=== PATIENT | male | born 1965 | race Caucasian/White ===

== ENCOUNTER 2025-10-27 16:22 | Outpatient (CLI) | payer MEDICAID, SELFPAY | END 2025-10-27 16:23 | disposition home or self-care (01) | PROVIDERS: PCP Family Medicine; Visit Provider Family Medicine | DX: E11.9 Type 2 diabetes mellitus without complications (principal); I10 Essential (primary) hypertension; Z13.9 Encounter for screening, unspecified; R53.83 Other fatigue | CPT/HCPCS: 80048; 80061; 84443; 85025 ==

== ENCOUNTER 2025-10-28 06:02 | Emergency (ER) | payer MEDICAID, SELFPAY ==
[2025-10-28] VITALS (9 sets, daily range): BP systolic 128–140; BP diastolic 80–88; PULSE 87–98; RESP 22; TEMP 36.7; O2SAT 94–97; BMI 19.0
--- OUTSIDE RECORDS SUMMARY | 2025-10-28 06:05 | XMS_ITS | Clinical Summary ---
Author Organization [facility] Address [address] [place] [address] Care Team Providers Care Manager Program Name Role Phone Elsewhere, Pcp Primary Care Provider Unavailabl e Source Comments Patient records contain information from all sites at [facility]. For routine questions regarding patient records, call [phone] during business hours, M-F 8:00 AM - 5:00 PM Central Time. Record requests for emergency care only can be directed to [phone] at any time.[facility] Allergies No known active allergies Medications MedicationSigDispense QuantityRefillsLast FilledStart DateEnd DateStatus blood sugar diagnostic strips (Blood Glucose Test Strips) Dispense test strips covered by pt ins. E11.65 NIDDM type II, uncontrolled - Test times/day. Reason: High A1C02/17/2022ctive nywqsx-jszumfzb-lgzutfi (Creon) 6,000-19,000-30,[address] capsule Take 1 capsule by mouth 3 (three) times a day with meals.05/09/2023ctive alcohol swabs pads, medicated Indications:Diabetes Mellitus Type 2 Hyperglycemia (HCC)Use as needed for diabetes control 1500 each ctive blood sugar diagnostic strips Indications:Diabetes Mellitus Type 2 Hyperglycemia (HCC)1 test daily. 100 test ctive blood glucose ctl high,nml,low solution Indications:Diabetes Mellitus Type 2 Hyperglycemia (HCC)Glucose control solution provides an easy way to ensure accurate blood glucose testing. 1 each 09/16/2024ctive metFORMIN XR (Glucophage-XR) 500 mg 24 hr tablet Take 1 tablet (500 mg total) by mouth daily with morning meal for 7 days, THEN 2 tablets (1,000 mg total) daily with morning meal for 7 days, THEN 3 tablets (1,500 mg total) daily with morning meal for 7 days, THEN 4 tablets (2,000 mg total) daily with morning meal. 310 tablet 4Active ciclopirox (Penlac) 8 % external solution Apply 1 Application topically at bedtime. Apply over nail and surrounding skin. Apply daily over previous coat. After seven (7) days, may remove with alcohol and continue cycle. 6.6 mL 5Active lisinopriL 5 mg tablet Take 1 tablet (5 mg total) by mouth daily. 90 tablet 5Active Accu-Chek Guide L1-L2 Ctrl Radha solution GLUCOSE CONTROL SOLUTION PROVIDES AN EASY WAY TO ENSURE ACCURATE BLOOD GLUCOSE TESTING 2 each 5Active Accu-Chek Guide Me Glucose Mtr misc Indications:Diabetes Mellitus Type 2 Hyperglycemia (HCC)USE TO TEST DIRECTED FOR DIABETES CONTROL 1 each 5Active insulin glargine (Lantus Solostar U-100 Insulin) 100 unit/mL (3 mL) pen Inject 35 Units under the skin at bedtime. Pharmacy select brand per patient insurance/preference. 15 mL 5Active Active Problems ProblemNoted DateDiagnosed DateDiabetes Mellitus Type 2 Yyneuczhngozg74/06/2018 Alcohol Induced Chronic Guzbyclvfpxe68/06/2018Moderate Or Severe Use Disorder (Dependence) Alcohol Qxevxmgap63/06/2018 Overview (09/16/2024): Sober since 2009. Tobacco Use07/29/2008 Immunizations ImmunizationAdministration DatesNext DueHepA / HepB5065SPH6175/12/2023 [id number] (SHINGRIX)11/20/2020,07/23/2020Tdap03/20/2018influenza vaccine QV(FLUBLOK) (18 years or older) (PF)07/23/2020influenza vaccine quad (FLUZONE/FLUARIX) (6 months and older)(PF)12/14/2021,08/14/2018 Family History Medical HistoryRelationNameCommentsStrokeFatherLyleColon cancerMother's Brother BudRelationNameStatusCommentsFatherLyleAliveMother's BrotherBudAlive Social History Tobacco UseTypesPacks/DayYears UsedDateSmoking Tobacco: Some DaysCigarettes0.342 Started: 1983Smokeless Tobacco: FormerSnuff Tobacco Cessation:Ready to Q uit: Not Asked; Counseling Given: Yes Comments:3 cig weekly Alcohol UseStandard Drinks/WeekCommentsNot Currently0 (1 standard drink = 0.6 oz pure alcohol)Sober since HC UtilitiesAnswerDate RecordedIn the past 12 months has the Tabber, gas, oil, or water [employer] threatened to shut off services in your home?Patient tmuyvyhy80/19/2024Hunger Vital SignAnswerDate RecordedWithin the past 12 months, you worried that your food would run out before you got the money to buymore.Sometimes true09/16/2024Within the past 12 months, the food you bought just didn't last and you didn't have money to get more.Never true09/16/2024RAPARE - TransportationAnswerDate RecordedIn the past 12 months, has lack of transportation kept you from medical appointments or from getting medications?No09/16/2024In the past 12 months, has lack of transportation kept you from meetings, work, or from getting things needed for daily living?No09/16/2024Housing StabilityAnswerDate RecordedWhat is your living situation today?I have a steady place to live09/16/2024Sex and Gender InformationValueDate RecordedSex Assigned at ApcvhEomm49/19/2024 10:01 AM FAMILY LIFE EDUCATOR Legal WheBoco16/07/2024 11:28 AM CSTGender TtgxuzbaNwrg39/19/2024 10:01 AM FAMILY LIFE EDUCATOR Sexual HypwvlncrrfSbqwbhhg54/19/2024 10:01 AM FAMILY LIFE EDUCATOR Last Filed Vital Signs Vital SignReadingTime TakenCommentsBlood Esflztgc765/8312/09/2024 3:47 PM FAMILY LIFE EDUCATOR Ndxoq7316 3:47 PM MRVYrlelzynyrq63.1 ??C (97 ??F)12/09/2024 3:41 PM FAMILY LIFE EDUCATOR Respiratory Hmyz272512/09/2024 3:41 PM CSTOxygen Saturation--Inhaled Oxygen Concentration--Xgyota26.8 kg (147 lb 4.3 oz)12/09/2024 3:41 PM FCMGjjesd899.8 cm (5' 9.21)09/16/2024 9:48 AM CSTwith shoes onBody Mass Index21.6109/16/2024 9:48 AM FAMILY LIFE EDUCATOR Plan of Treatment Health MaintenanceDue DateLast DoneCommentsCT Antjtutfryxl1967Cologuard 1967FIT1967HIV Iibofmfaa1967Hepatitis C Zwtyqjyub1967 Hepatitis A Vaccines (2 of 3 - Hep A Twinrix risk 3-dose series)04/27/2021 03/30/2021Hepatitis B Vaccines (2 of 3 - Hep B Twinrix 3-dose series)04/27/2021 03/30/2021iabetic Eye Exam/04/2021Hemoglobin A1C12/17/2024 09/16/2024, 05/09/2023, 12/14/2021, Additional history existsOffice Visit for Blood Pressure Check / Re-check/OVID-19 Vaccine ( season), 04/12/2021, 03/15/2021Influenza Vaccine (#1) , 07/23/2020, 08/14/2018Creatinine Level (Kidney Function Test), 05/09/2023, 12/14/2021, Additional history exists Diabetic Office Visit with Foot ExamLipid (Cholesterol) Hczoclouh92, 05/09/2023, 07/27/2020, Additional history exists PSA: Prostate Cancer Kddbdcwku884Potassium Level09/16/2025 09/16/2024, 05/09/2023, 12/14/2021, Additional history existsSodium Level , 05/09/2023, 12/14/2021, Additional history existsUrine Hnaolcb04/19/82457711/16/2023Tobacco Cessation smbwfajjmg73 DTaP,Tdap,and Td Vaccines (2 - Td or Tdap)Colonoscopy Colorectal Cancer Zwsmikmcz88/04/2028Zoster Vaccines Bnkchfkzk65/23/2021, 07/23/2020Pneumococcal vaccine (50+ years)Completed 05/09/2023, 08/14/2018Depression Screening (Annual PHQ-2)Lkadebhcb82/11/2025, 12/09/2024IPV VaccinesAged OutNo longer eligible based on patient's age to complete this topic Procedures Procedure NamePriorityDate/TimeAssociated DiagnosisCommentsLIPID PANEL, SRoutine 09/16/2024 10:44 AM FAMILY LIFE EDUCATOR Diabetes Mellitus Type 2 Hyperglycemia (HCC) PROSTATE-SPECIFIC AG (PSA) SCRN, KTdbfxch99/19/2024 10:44 AM FAMILY LIFE EDUCATOR Screening Examination Prostate Cancer BASIC METABOLIC PANEL, S/LVnfmgsm26/19/2024 10:44 AM FAMILY LIFE EDUCATOR Diabetes Mellitus Type 2 Hyperglycemia (HCC) HEMOGLOBIN A1C, IYawimgq02/19/2024 10:43 AM FAMILY LIFE EDUCATOR Diabetes Mellitus Type 2 Hyperglycemia (HCC) ALBUMIN, RANDOM, AKbtjmzz85/19/2024 10:36 AM FAMILY LIFE EDUCATOR Diabetes Mellitus Type 2 Hyperglycemia (HCC) from Last 3 Months or Most Recently Relevant to Health Maintenance Results * Lipid Panel (09/16/2024 10:44 AM FAMILY LIFE EDUCATOR)ComponentValueRef RangeTest Method Analysis TimePerformed AtPathologist HahrhnjkgTqodzzkjdydgp219wh/dL09/16/2024 11:40 AM CSTOWATComment: ----REFERENCE VALUE---- Normal: <150 mg/dL Borderline High: 150-199 mg/dL High: 200-499 mg/dL Very High: > or =500 mg/dL Cholesterol, Yrble713ld/dL09/16/2024 11:40 AM CSTOWATComment: ----REFERENCE VALUE---- Desirable: < 200 mg/dL Borderline High: 200 - 239 mg/dL High: > or = 240 mg/dL Cholesterol, LDL, Xmldzivzul05qr/dL09/16/2024 11:40 AM CSTOWATComment: ----REFERENCE VALUE---- Desirable: <100 mg/dL Above Desirable: 100-129 mg/dL Borderline High: 130-159 mg/dL High: 160-189 mg/dL Very High: >=190 mg/dL ----ADDITIONAL INFORMATION---- LDL cholesterol calculated using the Howard/NIH equation. Cholesterol, HDL44>=40 mg/dL09/16/2024 11:40 AM CSTOWATCholesterol, Non-HDL, Kvtiuswhzq194me/dL09/16/2024 11:40 AM CSTOWATComment: ----REFERENCE VALUE---- Desirable: <130 mg/dL Above Desirable: 130-159 mg/dL Borderline High: 160-189 mg/dL High: 190-219 mg/dL Very High: > or =220 mg/dL Fasting (8 HR or more)Yes09/16/2024 10:44 AM CSTOWATSpecimen (Source)Anatomical Location / LateralityCollection Method / VolumeCollection TimeReceived TimeBlood (Blood, Venous)09/16/2024 10:44 AM CST09/16/2024 10:47 AM FAMILY LIFE EDUCATOR Narrative Authorizing ProviderResult TypeResult StatusCaylben Ortega P.A.-C.LAB BLOOD ADD-ON Final ResultPerforming OrganizationAddressCity/State/ZIP CodePhone Number [facility] [address] [place] [address], [place] [facility] [place] [address] [place] [address] * PSA (Prostate-Specific Antigen) Screen (09/16/2024 10:44 AM FAMILY LIFE EDUCATOR)ComponentValue Ref RangeTest MethodAnalysis TimePerformed AtPathologist SignatureProstate- Specific Ag0.16<=3.5 ng/mL09/16/2024 11:46 AM CSTOWATComment: ----ADDITIONAL INFORMATION---- The testing method is an electrochemiluminescence assay manufactured by [employer] and performed on the Modular or Roseanna system. Values obtained with different assay methods or kits may be different and cannot be used interchangeably. Test results cannot be interpreted as absolute evidence for the presence or absence of malignant disease. Specimen (Source)Anatomical Location / LateralityCollection Method / Volume Collection TimeReceived TimeBlood (Blood, Venous)09/16/2024 10:44 AM FAMILY LIFE EDUCATOR 09/16/2024 10:47 AM FAMILY LIFE EDUCATOR Narrative Authorizing ProviderResult TypeResult StatusCayla Tarun Ortega P.A.-C.LAB BLOOD ADD-ON Final ResultPerforming OrganizationAddressCity/State/ZIP CodePhone Number [facility] [address] [place] [address], [facility] [place] [address] [place] [address] * (ABNORMAL) Basic Metabolic Panel (09/16/2024 10:44 AM FAMILY LIFE EDUCATOR)ComponentValueRef RangeTest MethodAnalysis TimePerformed AtPathologist SignaturePotassium, P4.2 3.6 - 5.2 mmol/L111/16/2023 11:40 AM CSTOWATSodium, H402311 - 145 mmol/L 09/16/2024 11:40 AM CSTOWATChloride, M64542 - 107 mmol/L111/16/2023 11:40 AM CSTOWATBicarbonate, P2422 - 29 mmol/L111/16/2023 11:40 AM CSTOWATAnion Gap, P12 7 - 15111/16/2023 11:40 AM CSTOWATBUN (Blood Urea Nitrogen), P138 - 24 mg/dL 09/16/2024 11:40 AM CSTOWATCreatinine0.760.74 - 1.35 mg/dL09/16/2024 11:40 AM CSTOWATEstimated GFR (eGFR)>90>=60 mL/min/BSA09/16/2024 11:40 AM CSTOWAT Comment: Estimated GFR calculated using the 2020 CKD_EPI creatinine equation. Calcium, Total, P8.78.6 - 10.0 mg/dL09/16/2024 11:40 AM CSTOWATGlucose, P250(H) 70 - 140 mg/dL09/16/2024 11:40 AM CSTOWATSpecimen (Source)Anatomical Location / LateralityCollection Method / VolumeCollection TimeReceived TimeBlood (Blood, Venous)09/16/2024 10:44 AM CST09/16/2024 10:47 AM FAMILY LIFE EDUCATOR Narrative Authorizing ProviderResult TypeResult StatusCaylben Ortega P.A.-C.LAB BLOOD ADD-ON Final ResultPerforming OrganizationAddressCity/State/ZIP CodePhone Number [facility] [address] [place] [address], [facility] [place] [address] [place] [address] * (ABNORMAL) Hemoglobin A1c (09/16/2024 10:43 AM FAMILY LIFE EDUCATOR)ComponentValueRef RangeTest MethodAnalysis TimePerformed AtPathologist SignatureHemoglobin A1c, B9.7(H)4.2 - 5.6 %09/16/2024 10:58 AM CSTOWATComment: Hemoglobin A1c values greater than or equal to 6.5 percent are diagnostic for diabetes mellitus. ??Diagnosis should be confirmed by repeat testing. ??In diabetic patients, HbA1c goals should be discussed with healthcare provider. Specimen (Source)Anatomical Location / LateralityCollection Method / Volume Collection TimeReceived TimeBlood (Blood, Venous)09/16/2024 10:43 AM FAMILY LIFE EDUCATOR 09/16/2024 10:46 AM FAMILY LIFE EDUCATOR Narrative Authorizing ProviderResult TypeResult StatusSvetlana Ortega P.A.-C.LAB BLOOD ADD-ON Final ResultPerforming OrganizationAddressCity/State/ZIP CodePhone Number [facility] [address] [place] [address], [place] [facility] [place] [address], [place] [address] * Albumin, Random, Urine (09/16/2024 10:36 AM FAMILY LIFE EDUCATOR)ComponentValueRef RangeTest MethodAnalysis TimePerformed AtPathologist SignatureMicroalbumin<12.0mg/L 09/16/2024 11:20 AM CSTOWATComment:If clinically indicated, contact the lab for additional testing.Jguhklpgau256lt/dL09/16/2024 11:20 AM CSTOWAT Albumin/Creatinine Ratio<11<17 mg/g111/16/2023 11:20 AM CSTOWATComment: This ratio may not correspond with the reference range because one or both of the values used to calculate the ratio was above or below the quantification limits. Specimen (Source)Anatomical Location / LateralityCollection Method / Volume Collection TimeReceived TimeUrine (Urine, Midstream)09/16/2024 10:36 AM FAMILY LIFE EDUCATOR 09/16/2024 10:44 AM FAMILY LIFE EDUCATOR Narrative Authorizing ProviderResult TypeResult StatusCaylben Ortega P.A.-C.LAB URINE ORDERABLESFinal ResultPerforming OrganizationAddressCity/State/ZIP CodePhone Number [facility] [address] [place] [address], [place] [facility] [place] [address] [place] [address] from Last 3 Months or Most Recently Relevant to Health Maintenance Insurance JAVEDCHANDRAKANT CHAPPELL [id number] Care Teams Team MemberRelationshipSpecialtyStart DateEnd Date Elsewhere, Pcp PCP - GeneralInternal Cpzwnfzw71/19/24
--- OUTSIDE RECORDS SUMMARY | 2025-10-28 06:05 | XMS_ITS | Clinical Summary ---
Author Organization [employer] [facility] Address [address] [place] [id number] Care Team Providers Care Revenue Tax Specialist Name Role Phone Pcp, No Unavailable Unavailable Clin, [facility] Pro vider Allergies No known active allergies Medications MedicationSigDispense QuantityRefillsLast FilledStart DateEnd DateStatus pen needle, diabetic (BD Insulin Pen Needle UF) 31 gauge x 5/16 Indications:Uncontrolled type 2 diabetes mellitus with hyperglycemia (HC)For administering insulin at home. Dx: E11.65, Dispense product covered by patients insurance 100 Each 03/18/2021ctive Blood-Glucose Meter (Freestyle InsuLinx) Indications:Uncontrolled type 2 diabetes mellitus with hyperglycemia (HC) Dispense glucose meter, test strips and lancets covered by the patient insurance. Test 3 times per day. 1 Device 03/29/2021ctive blood sugar diagnostic (Blood Glucose Test) strip Indications:Uncontrolled type 2 diabetes mellitus with hyperglycemia (HC) Dispense test strips covered by pt ins. E11.65 NIDDM type II, uncontrolled - Test times/day. Reason: High A1C 200 Each ctive lancets Indications:Uncontrolled type 2 diabetes mellitus with hyperglycemia (HC) Dispense item covered by pt ins. E11.65 NIDDM type II, uncontrolled - Test 2 times/day. Reason: High A1C 200 Each ctive mytoii-vhtpjuum-diojhpf (CREON) 6,000-19,000 -30,000 unit delayed-release capsule Indications:Alcohol-induced chronic pancreatitis (HC)Take 1 Capsule by mouth three times daily with meals. 90 Capsule 603Active Lantus Solostar U-100 Insulin 100 unit/mL (3 mL) pen Indications:Uncontrolled type 2 diabetes mellitus with hyperglycemia (HC)Product desired: LANTUS SOLOSTAR Inject 35 units at bedtime increase by 3 units weekly to a maximumof 50 units if blood glucose persistently more then 140 Strength: 100 unit/mL (3 mL) 6 mL 4Active Active Problems ProblemNoted DateDiagnosed DateAlcohol-induced chronic qfpnywhopjbj53/06/2018 Uncontrolled type 2 diabetes mellitus with yuaybwuffrkgz50/06/2018Alcohol use disorder, moderate, in sustained mfaxjpsgh91/06/2018Acute jlfqzrmuqidp45/01/2008 Overview (2009): alcoholic Tobacco abuse07/29/2008 Resolved Problems ProblemNoted DateDiagnosed DateResolved DateAlcohol withdrawal syndrome Overview (08/25/2008): High risk Immunizations ImmunizationAdministration DatesNext DueCOVID-19 vaccine (Moderna 100mcg/0.5mL) PF, MDV04/12/2021,03/15/2021OVID-19 vaccine (iCurrent-BioNTPadMatcher 30mcg/0.3mL) 12YO+ CAROLINE-SUCROSE PF, MDV12/14/2021HepA-HepB (Twinrix)03/29/2021Influenza RIV4 (Age 18+ Years) PRESERV FREE07/23/2020Influenza, YZB695/,07/23/2020,08/14/2018 Pneumococcal Conj 20-valent (Prevnar 20)3Pneumococcal Poly,23-Valent (Pneumovax)08/14/2018Tdap03/20/2018Zoster (Shingrix-RZV, recombinant)11/20/2020, 07/23/2020 Family History Medical HistoryRelationNameCommentsDiabetesFatherHeart DiseaseFatherHeart attack FatherHypertensionFatherSeizuresFatherStrokeFatherCancer-colonMaternal AuntHeart attackMotherCancer-colonPaternal AuntColon polypsSister 1Good HealthSister 2 RelationNameStatusCommentsFatherDeceasedheart bypassMaternal AuntMotherAlive Paternal AuntSister 1AliveSister 2Alive Social History Tobacco UseTypesPacks/DayYears UsedDateSmoking Tobacco: Every DayCigarettes Smokeless Tobacco: CurrentChew Tobacco Cessation:Ready to Q uit: Not Asked; Counseling Given: Not Answered Comments:3 cig per day Alcohol UseStandard Drinks/WeekCommentsNo0 (1 standard drink = 0.6 oz pure alcohol)sober since PHQ-2AnswerDate RecordedPHQ-2 TOTAL SYLFA188Social ConnectionsAnswerDate RecordedFrequency of Communication with Friends and Family Not on file10/19/2021Financial Resource StrainAnswerDate RecordedDifficulty of Paying Living ExpensesNot on file10/19/2021ifficulty of Paying Living Expenses Not on file10/19/2021ex and Gender InformationValueDate RecordedSex Assigned at BirthNot on fileLegal QzsNfpc2111/11/2012 6:22 AM CSTGender IdentityNot on file Sexual OrientationNot on file Last Filed Vital Signs Vital SignReadingTime TakenCommentsBlood Hsgfppbh893/7207 10:57 AM CDT Dcegh201405/09/2023 10:57 AM IUFXpqglsdhbeb84.2 ??C (97.2 ??F)12/14/2021 3:48 PM CSTRespiratory [place]2536 12:12 PM CDTOxygen Tqnmzveuom70%05/09/2023 10:57 AM CDTInhaled Oxygen Concentration--Ogmnda99 kg (154 lb 6.4 oz)05/09/2023 10:57 AM QNYWasjyl014 cm (5' 8.5)05/09/2023 10:57 AM CDTBody Mass Index23.13 05/09/2023 10:57 AM CDT Plan of Treatment Health MaintenanceDue DateLast DoneCommentsColonoscopy through age 04/01/2018Hepatitis B series for 19+ (2 of 3 - Hep B Twinrix 3-dose series) 1BMI (ht and wt on same day) for age 18+/09/2023, 12/14/2021, 07/27/2020, Additional history existsDepression screening for age 12+, 12/14/2021, 07/27/2020, Additional history existsCOVID- 19 vaccine series (2024- season), 04/12/2021, 03/15/2021Influenza Vaccine (#1)/, 07/23/2020, 07/23/2020, Additional history existsTetanus puntyfq50Lipids for age 45-75 , 07/27/2020, 08/06/2018RSV vaccine for adults or (1 - 1-dose 75+ series)2042Zoster (shingles) series for age 50+Completed 11/20/2020, 07/23/2020HIV for age 15-81Cyrkvwcxe52/12/2023Hepatitis C screening for age 18-61Xpuhkxthp56/12/2023neumococcal series for age 50+Completed 05/09/2023, 08/14/2018 Procedures Procedure NamePriorityDate/TimeAssociated DiagnosisCommentsLC HIV-1/O/2, 4TH JUGXCQQWJFOqjwifc12/12/2023 10:50 AM CDT Health care maintenance LC HCV ANTIBODY RFX TO QUANT TODTfwdqze11/12/2023 10:50 AM CDT Health care maintenance LIPID PANEL W REFLEX MEASURED EVXDzaftjr13/12/2023 10:50 AM CDT Health care maintenance SCAN-MOSJTFNAQMG33/04/2018 2:00 PM CDT from Last 3 Months or Most Recently Relevant to Health Maintenance Results * LC HCV ANTIBODY RFX TO QUANT PCR (05/09/2023 10:50 AM CDT)ComponentValueRef RangeTest MethodAnalysis TimePerformed AtPathologist SignatureHCV AbNon ReactiveNon Gozkrkgu38/14/2023 10:06 PM [facility]TLCH[facility] ([facility])Specimen (Source)Anatomical Location / Laterality Collection Method / VolumeCollection TimeReceived TimeBloodBLOOD SPECIMEN / UnknownVenipuncture / Aoysxom4205/09/2023 10:50 AM CDT05/09/2023 10:50 AM CDT Narrative [facility] (CET) - 05/11/2023 10:06 PM CDT Performed at: [address] ??[id number] Bulk Pallet Builder: Tad Corea MD, Phone: ??[phone] Authorizing ProviderResult TypeResult StatusGolden LUZLABORATORYFinal ResultPerforming OrganizationAddressCity/State/ZIP CodePhone Number [facility] ([facility]) [address] [place] [address], * HIV-1/O/2, 4TH GENERATION (05/09/2023 10:50 AM CDT)ComponentValueRef Range Test MethodAnalysis TimePerformed AtPathologist SignatureHIV Scr 4th GenNon ReactiveNon Dsdyqokr03/14/2023 11:09 AM [facility] (CET)Comment: HIV Negative HIV-1/HIV-2 antibodies and HIV-1 p24 antigen were NOT detected. There is no laboratory evidence of HIV infection. Specimen (Source)Anatomical Location / LateralityCollection Method / Volume Collection TimeReceived TimeBloodBLOOD SPECIMEN / UnknownVenipuncture / Unknown 05/09/2023 10:50 AM CDT05/09/2023 10:50 AM CDT Narrative [facility] (CET) - 05/11/2023 11:09 AM CDT Performed at: [address] ??[id number] Bulk Pallet Builder: Tad Corea MD, Phone: ??[phone] Authorizing ProviderResult TypeResult Debbie LUZLABORATORYFinal ResultPerforming OrganizationAddressCity/State/ZIP CodePhone Number [facility] ([facility]ET) [address] [place] [address], [place] * (ABNORMAL) LIPID PANEL W REFLEX MEASURED LDL (05/09/2023 10:50 AM CDT) ComponentValueRef RangeTest MethodAnalysis TimePerformed AtPathologist SignatureCHOLESTEROL,TOTAL96(L)100 - 199 mg/dL05/09/2023 6:46 PM [facility]-CENTRAL LABORATORYComment: Cholesterol, Total Reference Ranges Desirable <200 mg/dL Borderline 200-239 mg/dL High >=240 mg/dL YHXFLLDQANSYI833(H)<150 mg/dL05/09/2023 6:46 PM [facility]- CENTRAL LABORATORYHDL YACHILCCBZT02(L)>40 mg/dL05/09/2023 6:46 PM [facility]-CENTRAL LABORATORYNON-HDL EZXKDYJOKVA93<145 mg/dl05/09/2023 6:46 PM [facility] LABORATORYCHOL/HDL RATIO2.74<4.50 05/09/2023 6:46 PM [facility]-CENTRAL LABORATORYLDL CHOLESTEROL 28<=130 mg/dL05/09/2023 6:46 PM [facility] VLDL RSPLVUXCYDU68(H)<=30 mg/dL05/09/2023 6:46 PM [facility]- CENTRAL LABORATORYPROVIDER ORDERED STATUSNOT GIVEN05/09/2023 6:46 PM [facility]-CENTRAL LABORATORYSpecimen (Source)Anatomical Location / LateralityCollection Method / VolumeCollection TimeReceived TimeBloodBLOOD SPECIMEN / UnknownVenipuncture / Cyfgbga4005/09/2023 10:50 AM CDT05/09/2023 10:50 AM CDT Narrative Authorizing ProviderResult TypeResult StatusHarnarcisa LIZARRAGABSCHEMISTRYFinal ResultPerforming OrganizationAddressCity/State/ZIP CodePhone Number [facility] [address] [place] [address], [place] * SCAN-COLONOSCOPY (04/01/2018 2:00 PM CDT) Narrative Procedure Note Bradford Nguyễn, - 04/01/2018 12:34 PM CDT [facility] [address], [address], [place] [address] Patient Name: Francisco Javier Reyes Gender: Male Exam Date: 04/01/2018 Visit Number: [id number] Age: 53 Years 1 Month Date of : 1965 Attending MD: Bradford Nguyễn DO Medical Record#: [id number] Procedure: Colonoscopy Indications: Family history of colon cancer in patient's multiple seconddegree relatives. Family history of polyps in patient's sister. Age diagnosed: 40-49. Referring MD: Golden James MD Primary MD: Golden James MD Medications: Admitting Medications: 0.9% Normal Saline at TKO Intra Procedure Medications: Patient received monitored anesthesia care. Complications: No immediate complications Procedure: An examination of the heart and lungs was performed and found to be within acceptable limits. The patient was therefore deemed a reasonablecandidate for endoscopy and monitored anesthesia care. The risks and benefits of the procedure were explained to the patient.After obtaining informed consent, the patient received monitoredanesthesia care and I passed the scope without difficulty via the rectumto the descending colon. The scope was not retroflexed during theexamination The quality of the prep was poor (Miralax/Gatorade/2 tabletsBisacodyl/Magnesium Citrate). This procedure was incomplete due to poor prep. Findings: Copious solid debris throughout the examined colon precluding an adequateexam. Impression: Screening Colonoscopy Suboptimal prep Plan: 1. Reschedule colonoscopy after additional prep (repeat prep tonight vsdouble prep at a later date). Electronically signed by: Bradford Nguyễn DO 04/01/2018 Allergies: Medication Name Ingredient Reaction Comment NO KNOWN ALLERGIES Vital Signs: Date Time Systolic Diastolic Height Weight BMI 04/01/2018 117 PM 125 82 70 in 175.80 25.20 Race: Ethnicity: Not or Preferred Language: Romansh cc: Golden Jmaes MD cc: Golden James MD [facility] [phone] Authorizing ProviderResult TypeResult StatusKirlorraine Nguyễn DOOTHERFinal Result from Last 3 Months or Most Recently Relevant to Health Maintenance Insurance * Guarantor: [facility] Jarocho TypeRelation to PatientDate of BirthPhoneBilling AddressInmate BillingSelf [facility] [employer] [address] [place] [phone] Advance Directives * Full Code (Latest Code Status on File) Date ActivatedDate InactivatedComments2009 3:21 PM02/08/2009 4:50 PM * Full Code Date ActivatedDate YcbconnblpmMgxbuplk21/28/2008 7:11 PM08/31/2008 7:09 PM * Full Code Date ActivatedDate YlzfxidnbfpElebopkh58/1/2008 6:02 PM10 10:04 PM Care Teams Team MemberRelationshipSpecialtyStart DateEnd Date [facility], [facility] [address] [place] [address] PCP - General12/31/18 Pcp, No 03/20/18
--- OUTSIDE RECORDS SUMMARY | 2025-10-28 06:05 | XMS_ITS | Clinical Summary ---
Author Organization [facility] Address [address], [place] [address] Care Team Providers Care Transport Medic Name Role Phone WaltMacrinaAzeemFrankie [facility] Primary Care Provid er Source Comments You are receiving this document as you are listed as the primary care provider,follow-up provider, or the patient has been referred to you for consultation.This is in compliance with the Medicare and[facility]S Medical Centercaid EHR Incentive Program,which states Providers who transition their patient to another setting of careor provider of care or refers their patient to another provider of care shouldprovide summary care record for each transition of care or referral. [facility] Allergies No known active allergies Medications MedicationSigDispense QuantityRefillsLast FilledStart DateEnd DateStatus UNKNOWN MEDICATION Indications: PN:12/23/2010ctive Active Problems ProblemNoted DateDiagnosed BihwIgkuziqws71/26/2013 Social History Tobacco UseTypesPacks/DayYears UsedDateSmoking Tobacco: Every DaySmokeless Tobacco: Current Comments:Smoking History Pac ks/day: Alcohol UseStandard Drinks/WeekCommentsNo0 (1 standard drink = 0.6 oz pure alcohol)Sex and Gender InformationValueDate RecordedSex Assigned at BirthNot on fileLegal CtrSmqq38/10/2012 6:08 AM CDTGender IdentityNot on fileSexual OrientationNot on fileOccupationIndustryJob Start DateJob End DateNot on fileNot on fileNot on fileNot on file Last Filed Vital Signs Vital SignReadingTime TakenCommentsBlood Kyxkbtgl022/7011 9:45 AM SHIPPER/RECEIVER Yyxkz5705 9:45 AM ZVKDympemhhhtg79.9 ??C (98.4 ??F)12/21/2006 11:19 AM CSTC: 36.9 CRespiratory Egmw700012/21/2006 11:19 AM CSTOxygen Saturation--Inhaled Oxygen Concentration--Gulrvd83.3 kg (188 lb)09/05/2017 1:22 PM ABPMklqbg611.5 cm (5' 9.5)01/04/2009 1:22 PM CDTC: 176.5cmBody Mass Index27.36001/04/2009 1:22 PM CDT Plan of Treatment Health MaintenanceDue DateLast DoneCommentsHIV Screening (Preventive Services) 1983Adult Preventive Visit1985DTaP/Tdap/Td Vaccine (1 - Tdap) 1986HepB Vaccine (1)1986PSA Screening Jfngbcpwmj56 FIT Colon Cancer Boweghyyn18/05/9072Dlqcisummte84, 03/19/2003, 11/08/2000Pneumococcal Vaccine 50+ Yrs (1 of 1 - PCV)2017Zoster/Shingles Vaccine (1 of 2)2017COVID-19 Vaccine (1 - 2024- season)2025 Influenza Vaccine (#1)2025RSV Vaccine (1 - 1-dose 75+ series)2042Hep C Screening (Preventive Services)Dogiuiqil29/22/2003HepA VaccineAged OutNo longer eligible based on patient's age to complete this topicHib VaccineAged Out No longer eligible based on patient's age to complete this topicIPV (Polio) VaccineAged OutNo longer eligible based on patient's age to complete this topic MCV4 VaccineAged OutNo longer eligible based on patient's age to complete this topicMeningococcal B VaccineAged OutNo longer eligible based on patient's age to complete this topic Procedures Procedure NamePriorityDate/TimeAssociated DiagnosisCommentsPROSTATIC SPECIFIC ANTIGEN(SCREEN)Slyrsuv2801/07/2009 8:55 AM CDT LIPID PANEL & DIRECT LDL (IF NEEDED)Plvgemf9101/07/2009 8:55 AM CDT HEPATITIS C ANTIBODY, WITH REFLEX (ANTI-HCV)Lsomddk2403/19/2003 10:17 AM CDT from Last 3 Months or Most Recently Relevant to Health Maintenance Results * (ABNORMAL) Lipid Panel and Direct LDL(If Needed) (01/07/2009 8:55 AM CDT) ComponentValueRef RangeTest MethodAnalysis TimePerformed AtPathologist SignatureHours Uhrfvma06.0HoursHP CONVERSIONCholesterol/HDL Ratio Screen4.7No normal rangeHP ELIFQRKMHORfwrozkcdly065(H)<200 mg/dLHP CONVERSIONHDL Goceoqcvvmk07>40 mg/dLHP OTXCCBRMYAIrdmqhoqbiybx006(H)0 - 149 mg/dLHP CONVERSIONLDL Tkkhvygkzh587 - 130 mg/dLHP CONVERSIONComment:Specimen (Source) Anatomical Location / LateralityCollection Method / VolumeCollection Time Received Time01/07/2009 8:55 AM CDT Narrative Authorizing ProviderResult TypeResult StatusAmadeo TOMLINSONB_1Final Result Performing OrganizationAddressCity/State/ZIP CodePhone Number HP CONVERSION * Prostatic Specific Antigen (Screen) (01/07/2009 8:55 AM CDT)ComponentValueRef RangeTest MethodAnalysis TimePerformed AtPathologist SignatureProstate Specific Antigen0.20.0 - 4.0 ng/mLHP CONVERSIONSpecimen (Source)Anatomical Location / LateralityCollection Method / VolumeCollection TimeReceived Time 01/07/2009 8:55 AM CDT Narrative Authorizing ProviderResult TypeResult Carla TOMLINSONB_1Final Result Performing OrganizationAddressCity/State/ZIP CodePhone Number HP CONVERSION * Hepatitis C Antibody, with Reflex (03/19/2003 10:17 AM CDT)ComponentValueRef RangeTest MethodAnalysis TimePerformed AtPathologist SignatureHepatitis C AntibodyNon ReacNon ReacHP CONVERSIONSpecimen (Source)Anatomical Location / LateralityCollection Method / VolumeCollection TimeReceived Time03/19/2003 10:17 AM CDT Narrative Authorizing ProviderResult TypeResult StatusJameson Perez MDLAB_1Final Result Performing OrganizationAddressCity/State/ZIP CodePhone Number HP CONVERSION from Last 3 Months or Most Recently Relevant to Health Maintenance Insurance Care Teams Team MemberRelationshipSpecialtyStart DateEnd Date Frankie Pimentel, [facility] [address] [place] [address] PCP - Ufwtfyc61/19/13
[2025-10-28 06:36] LABS: HCO3 VBG 29 mmol/L (21-28); PCO2 VBG 45 mmHG (40-50); PO2 VBG 40.0 mmHG (25-47); pH VBG 7.420 (7.32-7.43)
[2025-10-28 06:40] LABS: Hematocrit* 41.4 % (37.0-53.0); Hemoglobin* 15.0 gm/dL (13.5-17.5); Immature Granulocytes Abs Auto 0.01 K/uL (0.00-0.30); Immature Granulocytes Pct Auto 0.2 %; Lymphocytes Absolute Auto 1.42 K/uL (0.90-2.90); Mean Corpuscular HGB Conc 36 gm/dL (32-36); Mean Corpuscular Hemoglobin 32 pg (26-34); Mean Corpuscular Volume 89 fL (80-100); RDW Coefficient of Variation % 11.8 % (11.5-15.5); Red Blood Count* 4.64 m/uL (4.30-5.90); White Blood Count* 6.19 K/uL (4.50-11.00)
[2025-10-28] MEDS: 0.9 % SODIUM CHLORIDE 500 ML 500 ML IV (06:43)
[2025-10-28 06:51] LABS: Chloride* 91 mmol/L (96-114); Potassium* 4.9 mmol/L (3.6-5.1); Slide Review Reflex No; Sodium* 126 mmol/L (135-149)
--- NOTE | 2025-10-28 06:51 | ED_ITS ---
HPI - General Adult General Chief complaint: Diabetic Related Problem Stated complaint: High blood sugar, primary care sent to ER Time Seen by Provider: 10/28/25 06:23 Source: patient Mode of arrival: ambulatory Limitations: no limitations History of Present Illness HPI narrative: 60-year-old male presents to the emergency department after being called yesterday evening by the lab that he had a critical glucose level and was told to present to the emergency department. He is not at all surprised by this critical level as he has not treated his diabetes for over 2 months and his A1c was over 15 in the clinic. Nonetheless, he comes in 10 hours later as he was told to do. He is feeling well and has no acute concerns today. He denies chest pain, breathing difficulty. He has an excellent appetite and is willing to start treating his diabetes. I can see the final plan of care from his note yesterday but patient outlines that he is to start 75/25 insulin 20 units twice daily with a plan for titration based on his blood sugars. Patient has not checked his blood sugar at home for over 2 months and it was too high to read on his monitor. Etiology of his diabetes sounds like it was from pancreatic failure from recurrent pancreatitis and therefore he will need to be treated with insulin and is unlikely to benefit from oral agents alone. He denies vomiting, neurological changes, fevers or other illness. He has not yet picked up the insulin prescribed yesterday. Blood sugar too high to read in triage, indicating over 600. Physical reviewed, limited prior records reviewed. Current outpatient medications none but will be restarting Creon, lisinopril and the insulin mix as prescribed. Related Data Home Medications ?Medication ?Instructions ?Recorded ?Confirmed blood-glucose meter (Accu-Chek 10/27/25 10/28/25 Guide Glucose Meter) Previous Rx's ?Medication ?Instructions ?Recorded insulin lispro protamine-lispro 20 unit (0.2 mL) subcu t BID #15 mL 10/27/25 100 unit/mL (75-25) subcutaneous pen (Humalog Mix 75-25 KwikPen) pen needle, diabetic 31 gauge x #100 ea 10/27/25 3/16 (Easy Comfort Pen Rincon) Allergies Allergy/AdvReac Type Severity Reaction Status Date / Time No Known Drug Allergies Allergy Verified 10/28/25 07:20 [facility] Medical History Type 2 diabetes mellitus, with long-term current use of insulin ?E11.9 - Type 2 diabetes mellitus without complications (ICD-10) ?Z79.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 (ICD-10) Onychomycosis ?B35.1 - Tinea unguium (ICD-10) Essential hypertension ?I10 - Essential (primary) hypertension (ICD-10) GERD (gastroesophageal reflux disease) ?K21.9 - Gastro-esophageal reflux disease without esophagitis (ICD-10) Tobacco use ?Z72.0 - Tobacco use (ICD-10) Alcohol use disorder in remission ?F10.91 - Alcohol use, unspecified, in remission (ICD-10) Alcohol-induced chronic pancreatitis ?K86.0 - Alcohol-induced chronic pancreatitis (ICD-10) Social History Smoking Status: Current every day smoker Do you use any of these nicotine containing products: Vaping Products How often do you have a drink containing alcohol: never AUDIT-C Alcohol total score: 0 Non-prescribed substance use: denies use Exam Const: Vital Signs, click to edit/add: Vital Signs - 24 hr 10/28/25 06:12 10/28/25 07:47 10/28/25 07:50 Temperature 98.0 F Pulse Rate 94 Pulse Rate [Right Pulse Oximeter] 98 Respiratory Rate 22 Blood Pressure 140/85 H Blood Pressure [Le ft Upper Arm] 131/88 Pulse Oximetry 95 94 Oxygen Delivery Me thod Room Air 10/28/25 08:00 10/28/25 08:02 Temperature Pulse Rate 94 93 Pulse Rate [Right Pulse Oximeter] Respiratory Rate Blood Pressure 136/82 Blood Pressure [Le ft Upper Arm] Pulse Oximetry 97 97 Oxygen Delivery Me thod Documenting provider has reviewed patient's vital signs: yes Common normals: no apparent distress and alert Other: He certainly answers questions in a very round about way but can be redirected. Does not seem to have any focal neurological change. Alert, appears well hydrated and well nourished. HENMT: Common normals: normocephalic, moist oral mucous membranes and oropharynx normal Head and scalp: normocephalic Face and sinus: normal facial exam Mouth: oral and palatal mucosa normal Eye: Common normals: conjunctivae normal General eye: normal appearance of both eyes Conjunctiva: conjunctiva(e) normal Resp: Common normals: normal respiratory effort, no use of accessory muscles and clear to auscultation bilaterally Effort & inspection: able to speak in complete sentences Auscultation: clear to auscultation bilaterally Cardio: Common normals: regular rate, regular rhythm, S1 normal heart sound, S2 normal heart sound and no murmurs Rate: regular rate Rhythm: regular rhythm Heart sounds: S1 normal and S2 normal GI: Common normals: Normal to inspection, nondistended, normoactive bowel sounds present, soft to palpation, non-tender, no hepatosplenomegaly and no masses Palpation: soft and no hepatosplenomegaly Extremity: Common normals: no pedal edema Neuro: Sensorium/orientation: alert Speech: speech normal Gait (neuro): normal gait Psych: Appearance: grossly normal Activity/motor behavior: appropriate eye contact Insight: fair Judgement: fair Skin: Common normals: no rashes or lesions noted General skin exam: no rashes or lesions noted Course Course ED Course: 60-year-old male with hyperglycemia, blood sugars elevated for at least the l ast several months as patient has not been treating his diabetes. Will obtain venous blood gas to ensure that he does not have acidosis. If this is negative, will give 20 units of Lantus, 10 units of Humalog, hourly Accu-Cheks to ensure that this starts coming down with the plan to discharge on the previously well planned regimen by his primary care doctor. Will recheck blood sugar 1 hour after insulin administration. Reevaluation(s) Time of Reevaluation #1: 08:26 Reevaluation #1: Blood sugar 1 hour after insulin administration is coming down nicely, 570 currently. Patient feeling well. Okay to discharge home. He and I discussed the plan that he will take 15 units of the 75/25 insulin this evening with his evening meal and starting tomorrow will take 20 b.i.d.. He will drop his blood sugars after Dr. Vizcarra every 2 weeks and follow-up in 6 weeks in the office. If his blood sugars are not coming down and getting under control, will see Dr. Vizcarra sooner. He verbalizes agreement and understanding of the plan. There are no signs of acidosis today. Okay to discharge home with plan as above. Vital Signs Vital signs: Initial Vital Signs Temperature 98.0 F 10/28/25 06:12 Temperature Source Temporal Artery Scan 10/28/25 06:12 Pulse Rate 98 10/28/25 06:12 Respiratory Rate 22 10/28/25 06:12 Blood Pressure 131/88 10/28/25 06:12 Blood Pressure Mean 102 10/28/25 06:12 Blood Pressure Position Sitting 10/28/25 06:12 Pulse Oximetry 95 10/28/25 06:12 Oxygen Delivery Method Room Air 10/28/25 06:12 Vital Signs Temperature 98.0 F 10/28/25 06:12 Pulse Rate 98 10/28/25 06:12 Respiratory Rate 22 10/28/25 06:12 Blood Pressure 131/88 10/28/25 06:12 Pulse Oximetry 95 10/28/25 06:12 Oxygen Delivery Method Room Air 10/28/25 06:12 Temperature 98.0 F 10/28/25 06:12 Pulse Rate 93 10/28/25 08:02 Respiratory Rate 22 10/28/25 06:12 Blood Pressure 136/82 10/28/25 08:02 Pulse Oximetry 97 10/28/25 08:02 Oxygen Delivery Method Room Air 10/28/25 06:12 Medications Administered Medications: Discontinued Medications Generic Name Dose Route Start Last Admin Trade Name Freq PRN Reason Stop Dose Admin Sodium Chloride 500 mls @ 500 mls/hr 10/28/25 06:36 10/28/25 06:43 0.9 % Sodium Chloride 500 Ml IV 10/28/25 07:35 500 mls/hr .Q1H DAVID Administration Insulin Aspart 10 unit 10/28/25 06:34 10/28/25 07:07 Insulin Aspart 100 Unit/Ml SUBCUT 10/28/25 06:35 10 unit ONCE ONE Administration Insulin Glargine 20 unit 10/28/25 06:34 10/28/25 07:07 Insulin Glargine,Hum.Rec.Anlog 100 Unit/Ml Insuln.Pen SUBCUT 10/28/25 06:35 20 unit ONCE ONE Administration Medical Decision Making Lab Data Lab results reviewed: Yes I reviewed the patient's lab results Lab results narrative: No acidosis but blood sugar is high, as expected. Sodium is low, likely secondary to elevated blood sugar but there are not any other dangerous abnormalities. Creatinine looks good. Labs: Lab Results 10/28/25 Range/Units 06:30 WBC 6.19 (4.50-11.00) K/uL RBC 4.64 (4.30-5.90) m/uL Hgb 15.0 (13.5-17.5) gm/dL Hct 41.4 (37.0-53.0) % MCV 89 (80-100) fL MCH 32 (26-34) pg MCHC 36 (32-36) gm/dL RDW Coeff of Lola 11.8 (11.5-15.5) % Plt Count 214 (140-440) K/uL Neut % (Auto) 70.0 (42.0-72.0) % Lymph % (Auto) 22.9 (20-44) % [place] % (Auto) 6.0 (0.0-11.0) % Eos % (Auto) 0.6 (0.0-7.0) % Baso % (Auto) 0.3 (0.0-3.0) % Neut # (Auto) 4.33 (1.7-7.0) K/uL Lymph # (Auto) 1.42 (0.90-2.90) K/uL [place] # (Auto) 0.40 (0.00-0.90) K/UL Eos # (Auto) 0.04 (0.00-0.50) K/uL Baso # (Auto) 0.02 (0.00-0.30) K/uL Abs Immat Gran (auto) 0.01 (0.00-0.30) K/uL Imm/Tot Granulo (auto) 0.2 % VBG pH 7.420 (7.32-7.43) VBG pCO2 45 (40-50) mmHG VBG pO2 40.0 (25-47) mmHG VBG HCO3 29 H (21-28) mmol/L Sodium 126 L (135-149) mmol/L Potassium 4.9 (3.6-5.1) mmol/L Chloride 91 L (96-114) mmol/L Carbon Dioxide 27 (20-32) mmol/L Anion Gap 8 (7-15) mEq/L BUN 21 (7-30) mg/dL Creatinine 0.7 (0.5-1.5) mg/dL Estimated Creat Clear 95.20 Estimated GFR 107 ml/min Glucose 677 H* (60-115) mg/dL Calcium 8.9 (8.4-10.6) mg/dL C-Reactive Protein < 0.5 L (0.5-1.0) mg/dL Discharge Plan Discharge Clinical Impression: Chronic hyperglycemia Patient Disposition: Home, Self-Care Condition: Stable Instructions: Diabetic Hyperglycemia (ED) Additional Instructions: you know, your blood sugar has been quite high for some time. This is certainly not new. I am sorry that the lab called you in a panic. You were given 20 units of Lantus and 10 units of Humalog here in the emergency room. The Lantus and the long-acting insulin. The Humalog is a very short-acting insulin that will help lower your blood sugar more rapidly. Would like for you to bulk picker the insulin prescribed by Dr. Vizcarra and take 15 units tonight rather than the 20 units that you had previously planned. This is simply because I gave you more in the emergency room today. Tomorrow morning, you will take 20 units twice daily of your new insulin as you and Dr. Vizcarra had planned. You will check your blood sugar twice daily, at bedtime and then fasting in the morning. We will need to know these values to better adjust your insulin. Remember that as you 1st restart insulin, you may have a feeling of low blood sugar when your blood sugar is nearing normal. This is because her body adapted to those very high blood sugars. I want to reassure you that you will not have a seizure or go into a coma at a normal blood sugar. It will take some getting use to 4 your body again but I promise you that that is an important part of the process of getting you healthy again. Feel free to recheck your blood sugar if you are feeling low to reassure your self that you are not below 60. Record your blood sugars so that Dr. Vizcarra can more easily adjust your insulin and follow up with him in 2 weeks for adjustment. Activity Level: Activity as Tolerated Discharge Diet: Regular Prescriptions: No Action (DME) blood-glucose meter [Accu-Chek Guide Glucose Meter] Misc See Rx Instructions .Route Rx Instructions: As directed insulin lispro protamin-lispro [Humalog Mix 75-25 KwikPen] 100 unit/mL (75-25) insulin pen 20 unit subcut BID Qty: 15 0RF (DME) pen needle, diabetic [Easy Comfort Pen Rincon] 31 gauge x 3/16 needle See Rx Instructions .Route Qty: 100 3RF Rx Instructions: BID Follow Up/Referrals: Gurmeet Vizcarra MD [Primary Care Provider, Family Practice] Stand Alone Forms: MyHealth Info Instructions Procedures ABG Interpretation ABG Results: 10/28/25 06:30 VBG pH 7.420 VBG pCO2 45 VBG pO2 40.0 VBG HCO3 29 H
[2025-10-28 06:54] LABS: Anion Gap 8 mEq/L (7-15); Carbon Dioxide* 27 mmol/L (20-32)
[2025-10-28 06:55] LABS: Blood Urea Nitrogen* 21 mg/dL (7-30); Calcium* 8.9 mg/dL (8.4-10.6); Creatinine* 0.7 mg/dL (0.5-1.5); Est. Creatinine Clearance* 95.20; Estimated Glomerular Filt Rate 107 ml/min
[2025-10-28 07:03] LABS: Glucose* 677 mg/dL (60-115)
[2025-10-28] MEDS: INSULIN ASPART 100 UNIT/ML 10 UNIT SUBCUT (07:07)
== END 2025-10-28 08:50 | disposition home or self-care (01) ==
PROVIDERS: Emergency Provider Family Medicine; PCP Family Medicine
DX: E11.65 Type 2 diabetes mellitus with hyperglycemia (principal); T38.3X6A Underdosing of insulin and oral hypoglycemic [antidiabetic] drugs, initial encounter; Z91.148 Patient's other noncompliance with medication regimen for other reason; Z79.899 Other long term (current) drug therapy
CPT/HCPCS: 36415; 80048; 82803; 82962; 85025; 86140; 99284; J1815; J7030